=== PATIENT | male | born 1990 | race African-American/Black ===

== ENCOUNTER 2019-03-14 17:21 | Emergency (ER) | payer SELFPAY ==
[~2019-03-14] VITALS: Ht 170.2 cm; Wt 65.8 kg
[2019-03-14 17:30] VITALS: BP 137/63
[2019-03-14] MEDS ORDERED: predniSONE 10 MG TABLET PO ONE (17:45)
[2019-03-14] MEDS ORDERED: IPRATRPIUM/ALBUTEROL 0.5/2.5MG 3 ML NEBU. NEB ONE (17:45)
--- NOTE | 2019-03-14 18:09 | PHYS DOC ---
Past Medical History Past Medical History: No Pertinent History (CARSON ARREDONDO APRN) Past Surgical History: No Surgical History (CARSON ARREDONDO APRN) Alcohol Use: Heavy Additional Information: DRINKS BEER DAILY Drug Use: None (CARSON ARREDONDO APRN) Adult General Chief Complaint Chief Complaint: CHEST WALL PAIN HPI HPI Patient is a 28 year old male who presents with a productive cough for 4 days. Denies any fever. He is a smoker, he is also complaining of eczema flareup. (CARSON ARREDONDO APRN) Review of Systems Review of Systems Constitutional: Denies fever or chills [] Eyes: Denies change in visual acuity, redness, or eye pain [] HENT: Denies nasal congestion or sore throat [] Respiratory: reports cough denies shortness of breath [] Cardiovascular: No additional information not addressed in HPI [] GI: Denies abdominal pain, nausea, vomiting, bloody stools or diarrhea [] : Denies dysuria or hematuria [] Musculoskeletal: Denies back pain or joint pain [] Integument: reports eczema Neurologic: Denies headache, focal weakness or sensory changes [] All other systems were reviewed and found to be within normal limits, except as documented in this note. (CARSON ARREDONDO APRN) Current Medications Current Medications Current Medications Medications (Trade) Dose Ordered Sig/Vanessa Start Time Stop Time Status Last Admin Dose Admin Albuterol/ Ipratropium (Duoneb) 3 ml 1X ONCE 03/14/19 17:45 03/14/19 17:46 DC 03/14/19 17:46 3 ML Azithromycin (Zithromax) 1,000 mg 1X ONCE 03/14/19 18:30 03/14/19 18:31 DC Ceftriaxone Sodium (Rocephin Im) 250 mg 1X ONCE 03/14/19 18:30 03/14/19 18:31 DC Metronidazole (Flagyl) 1,000 mg 1X ONCE 03/14/19 18:30 03/14/19 18:31 DC Prednisone (Prednisone) 50 mg 1X ONCE 03/14/19 17:45 03/14/19 17:46 DC 03/14/19 17:44 50 MG (PROMISE CHAMBERS MD) Allergies Allergies Allergies Coded Allergies Type Severity Reaction Last Updated Verified No Known Drug Allergies 03/14/19 No (PROMISE CHAMBERS MD) Physical Exam Physical Exam Constitutional: Well developed, well nourished, no acute distress, non-toxic appearance. [] HENT: Normocephalic, atraumatic, bilateral external ears normal, oropharynx moist, no oral exudates, nose normal. [] Eyes: PERRLA, EOMI, conjunctiva normal, no discharge. [] Neck: Normal range of motion, no tenderness, supple, no stridor. [] Cardiovascular:Heart rate regular rhythm, no murmur [] Lungs & Thorax: Bilateral breath sounds clear to auscultation [] Abdomen: Bowel sounds normal, soft, no tenderness, no masses, no pulsatile masses. [] Skin: Moderate eczema rash on patient's face, neck, bilateral upper extremities. Back: No tenderness, no CVA tenderness. [] Extremities: No tenderness, no cyanosis, no clubbing, ROM intact, no edema. [] Neurologic: Alert and oriented X 3, normal motor function, normal sensory function, no focal deficits noted. [] Psychologic: Affect normal, judgement normal, mood normal. [] (CARSON ARREDONDO APRN) Current Patient Data Vital Signs Vital Signs Date Time Temp Pulse Resp B/P (MAP) Pulse Ox O2 Delivery O2 Flow Rate FiO2 03/14/19 17:48 98 Room Air 03/14/19 17:30 98.5 67 16 137/63 (87) 98.5 (PROMISE CHAMBERS MD) EKG EKG [] (CARSON ARREDONDO APRN) Radiology/Procedures Radiology/Procedures [] (CARSON ARREDONDO APRN) Course & Med Decision Making Course & Med Decision Making Pertinent Labs and Imaging studies reviewed. (See chart for details) This is a 28-year-old male patient presenting to the ED today with a cough for 4 days. Also complaining of eczema. He does have quite a bit of eczema rash on the face neck and bilateral upper extremities. Chest x-ray interpreted by Dr. Gonzalez is negative for any acute findings. Patient was discharged with albuterol inhaler and Tessalon Perles for his cough. Also given prednisone which will help with his eczema rash which is on the face and upper extremities. He was encouraged to consider smoking cessation. Follow- up with PCP in 1-2 weeks. Upon discharge patient requested STD treatment. Treatment was provided as well as education. (CARSON ARREDONDO APRN) Course & Med Decision Making Staff Physician Addendum: I was working in the ER during the course of this patient's visit. I was available for consultation as needed, but I was not directly involved in the care of this patient. (PROMISE CHAMBERS MD) Dragon Disclaimer Dragon Disclaimer This electronic medical record was generated, in whole or in part, using a voice recognition dictation system. (CARSON ARREDONDO APRN) Departure Departure Impression: Primary Impression: Eczema Additional Impressions: Bronchitis Smoking addiction Concern about STD in male without diagnosis Disposition: HOME, SELF-CARE Condition: STABLE Patient Instructions: Acute Bronchitis, Eczema Additional Instructions: You were evaluated in the emergency room for bronchitis and eczma. Use the prescribed medications as ordered. Follow-up with your doctor in 1-2 weeks. Consider smoking cessation Scripts Triamcinolone Acetonide (TRIAMCINOLONE ACETONIDE 0.1% CREAM) 15 Gm Cream..g. 1 ODELL TP BID, #1 TUBE 2 Refills Prov: CARSON ARREDONDO APRN 03/14/19 Prednisone (PREDNISONE) 50 Mg Tablet 1 TAB PO DAILY, #5 TAB Prov: CARSON ARREDONDO APRN 03/14/19 Benzonatate (TESSALON PERLE) 100 Mg Capsule 1 CAP PO TID, #30 CAP Prov: CARSON ARREDONDO APRN 03/14/19 Albuterol Sulfate (Proventil Hfa) 6.7 Gm Hfa.aer.ad 1 PUFF INH PRN Q6HRS PRN for SHORTNESS OF BREATH, #1 INHALER Prov: CARSON ARREDONDO APRN 03/14/19 Problem Qualifiers Primary Impression: Eczema Eczema type: unspecified Qualified Codes: L30.9 - Dermatitis, unspecified CARSON ARREDONDO APRN Mar 14, 2019 18:09 PROMISE CHAMBERS MD Mar 14, 2019 18:33
[2019-03-14] MEDS ORDERED: PROVENTIL HFA6.7 G2 INH (18:17)
[2019-03-14] MEDS ORDERED: BENZ100C PO (18:17)
[2019-03-14] MEDS ORDERED: TRIA15CR3 TP (18:17)
[2019-03-14] MEDS ORDERED: PRED50TA PO (18:17)
[2019-03-14] MEDS ORDERED: metroNIDAZOLE 500 MG TABLET PO ONE (18:30)
[2019-03-14] MEDS ORDERED: cefTRIAXone IM 250 MG VIAL IM ONE (18:30)
[2019-03-14] MEDS ORDERED: AZITHROMYCIN 250 MG TABLET. PO ONE (18:30)
--- NOTE | 2019-03-15 14:08 | RAD ---
Chest, PA and Lateral: Technique: PA and lateral views of the chest were obtained. History: Cough. Comparison: None. Findings: The heart and pulmonary vasculature appear within normal limits. The lungs are clear. The pleural margins are clear. Impression: No acute chest process is seen. Electronically signed by: Allen Avila MD (03/15/2019 2:05 PM) [place] [id number]
== END 2019-03-14 19:03 | disposition home or self-care (01) ==
LOC: ER 17:21
DX: L30.8 Other specified dermatitis (principal); J40 Bronchitis, not specified as acute or chronic; F17.200 Nicotine dependence, unspecified, uncomplicated; Z20.2 Contact with and (suspected) exposure to infections with a predominantly sexual mode of transmission; F10.20 Alcohol dependence, uncomplicated; Y90.9 Presence of alcohol in blood, level not specified
CPT/HCPCS: 71046; 94640; 96372; 99284; J0696; J7512; J7620; Q0144